=== PATIENT | female | born 1980 | race Caucasian/White ===

== ENCOUNTER 2017-03-29 06:56 | Day surgery (SDC) | payer MEDICAID ==
[~2017-03-29 06:56] MED LIST: Lactated Ringers 1,000 ML IV SCH; Lidocaine 1%/Sod Bicarbonate in NS 8.4% 1 ML Syringe IV PRN; Sodium Chloride 0.9% 10 ML Syringe FLUSH PRN
--- NOTE | 2017-03-29 07:21 | PCM.PREANE ---
Preanesthetic Assessment - Procedure Proposed Procedure: Removal of hardware of left clavical - Anesthesia/Transfusion/Family Hx Anesthesia History: Prior Anesthesia Without Reaction Other Type of Anesthesia Reaction Comment: No complications from prior anesthesia Family History of Anesthesia Reaction: No Transfusion History: No Prior Transfusion(s) Intubation History: Unknown - Review of Systems General: No Symptoms Pulmonary: No Symptoms Cardiovascular: No Symptoms Gastrointestinal: No Symptoms Neurological: No Symptoms, Other (migraines ) Other: Reports: None - Physical Assessment NPO Status Date: 03/29/17 NPO Status Time: 22:45 Pulse: 66 O2 Sat by Pulse Oximetry: 98 Respiratory Rate: 16 Blood Pressure: 93/66 Temperature: 36.8 C Height: 1.73 m Weight: 69.4 kg ASA Class: 2 Mental Status: Alert & Oriented x3 Airway Class: Mallampati = 1 Dentition: Reports: Normal Dentition Thyro-Mental Finger Breadths: 3 Mouth Opening Finger Breadths: 5 ROM/Head Extension: Full Lungs: Clear to Auscultation, Normal Respiratory Effort Cardiovascular: Regular Rate, Regular Rhythm - Allergies Allergies/Adverse Reactions: Allergies Allergy/AdvReac Type Severity Reaction Status Date / Time Latex, Natural Rubber Allergy Intermediate Swelling Verified 10/11/14 01:28 acetaminophen [From Vicodin] Allergy Mild Itching Verified 10/11/14 01:28 hydrocodone bitartrate Allergy Mild Itching Verified 10/11/14 01:28 [From Vicodin] venom-honey bee Allergy Anaphylactic Verified 10/11/14 01:28 [bee venom (honey bee)] Shock - Blood Blood Available: No - Acknowledgements Anesthesia Type Planned: General Anesthesia Pt an Appropriate Candidate for the Planned Anesthesia: Yes Alternatives and Risks of Anesthesia Discussed w Pt/Guardian: Yes Pt/Guardian Understands and Agrees with Anesthesia Plan: Yes PreAnesthesia Questionnaire - Past Health History Medical/Surgical History: Denies Medical/Surgical History HEENT History: Reports: None Cardiovascular History: Reports: None Respiratory History: Reports: None Gastrointestinal History: Reports: None, GERD Genitourinary History: Reports: None SUPERVISOR SHOW OPERATIONS History: Reports: Other (See Below) (pelvic pain) Musculoskeletal History: Reports: None Neurological History: Reports: None - SUBSTANCE USE Smoking Status *Q: Former Smoker Tobacco Use Within Last Twelve Months: Cigarettes Second Hand Smoke Exposure: Yes Days Per Week of Alcohol Use: 0 Number of Drinks Per Day: 0 Total Drinks Per Week: 0 Recreational Drug Use History: No Recreational Drug Type: Reports: Cocaine (history), Marijuana/Hashish (13yrs ago ) - HOME MEDS Home Medications: Home Meds SUMAtriptan Succinate [Imitrex] 100 mg PO DAILY PRN 10/11/14 [History] - CURRENT (IN HOUSE) MEDS Current Meds: Current Medications Lactated Ringer's (Ringers, Lactated) 1,000 mls @ 125 mls/hr IV ASDIRECTED LOUIS Lidocaine/Sodium Bicarbonate (Buffered Lidocaine 1% In Ns 8.4%) 0.25 ml IV ONETIME PRN PRN Reason: Prior to IV Start Sodium Chloride (Saline Flush) 10 ml FLUSH ASDIRECTED PRN PRN Reason: Keep Vein Open
[2017-03-29] MEDS ORDERED: Bupivacaine 0.5% 30 ML SDV ONE (07:24)
[2017-03-29] MEDS ORDERED: Iodine/Sodium Iodide 2% Tincture 30 ML Bottle ONE (07:24)
[2017-03-29] MEDS ORDERED: diphenhydrAMINE 50 MG/ML SDV IVPUSH PRN (07:33)
[2017-03-29] MEDS ORDERED: HYDROmorphone 0.5 MG/0.5 ML Syringe IVPUSH PRN (07:33)
[2017-03-29] MEDS ORDERED: Ondansetron 4 MG/2 ML SDV IVPUSH PRN ×2 (07:33→07:39)
[2017-03-29] MEDS ORDERED: Meperidine PF 50 MG/ML Syringe IVPUSH PRN (07:33)
[2017-03-29] MEDS ORDERED: fentaNYL 100 MCG/2 ML SDV IVPUSH PRN (07:33)
[2017-03-29] MEDS ORDERED: Acetaminophen/oxyCODONE 325-5 MG Tab PO PRN (07:39)
[2017-03-29] MEDS ORDERED: Ketorolac 30 MG/ML SDV IVPUSH PRN (07:39)
[2017-03-29] MEDS ORDERED: Propofol 200 MG/20 ML SDV ONE (07:51)
[2017-03-29] MEDS ORDERED: Midazolam 1 MG/ML 2 ML SDV ONE (07:52)
[2017-03-29] MEDS ORDERED: Lidocaine 1% 4 ML ONE (07:56)
[2017-03-29] MEDS ORDERED: Ondansetron 4 MG/2 ML SDV ONE (08:30)
[2017-03-29] MEDS ORDERED: Dexamethasone 4 MG/ML 5 ML MDV ONE (08:30)
[2017-03-29] MEDS ORDERED: ceFAZolin 1 GM Vial ONE (08:39)
[2017-03-29] MEDS ORDERED: HYDROmorphone 1 MG/ML Syringe ONE (08:51)
--- NOTE | 2017-03-29 09:31 | PCM.POSTAN ---
POST ANESTHESIA ASSESSMENT - MENTAL STATUS Mental Status: Other (Drowsy ) - VITAL SIGNS Pulse Rate: 80 SaO2: 98 Resp Rate: 17 Blood Pressure: 110/62 Temperature: 36.4 C - RESPIRATORY Respiratory Status: Respiratory Rate WNL, Airway Patent, O2 Saturation Stable - CARDIOVASCULAR CV Status: Pulse Rate WNL, Blood Pressure Stable - GASTROINTESTINAL GI Status: No Symptoms - PAIN Pain Score: 0 - POST OP HYDRATION Hydration Status: Adequate & Stable
[2017-03-29] MEDS ORDERED: Morphine 15 MG Tab.ER PO ONE (10:15)
[2017-03-29 12:14] VITALS: BP 116/67
--- NOTE | 2017-03-29 12:52 | PCM48HPAN ---
Post Anesthesia Note - EVALUATION WITHIN 48HRS OF ANESTHETIC Vital Signs in Normal Range: Yes Patient Participated in Evaluation: Yes Respiratory Function Stable: Yes Airway Patent: Yes Cardiovascular Function Stable: Yes Hydration Status Stable: Yes Pain Control Satisfactory: Yes Nausea and Vomiting Control Satisfactory: Yes Mental Status Recovered: Yes
--- NOTE | 2017-03-29 13:36 | OR ---
DATE OF OPERATION: 03/29/2017 SURGEON: Hubert Mariscal MD PREOPERATIVE DIAGNOSIS: Status post fracture of left clavicle with plate and screw fixation. POSTOPERATIVE DIAGNOSIS: Status post fracture of left clavicle with plate and screw fixation. OPERATION PERFORMED: Removal of a plate and screw fixation of left clavicle hardware. ANESTHESIA: General. DESCRIPTION OF PROCEDURE: The patient was taken to the operative room in a supine position and was placed under general anesthesia. After adequate anesthesia, the patient was placed in a beach chair type position. The operation proceeded with prepping and draping of the left shoulder by standard technique. After prepping and draping, the area of surgery was identified. The plate was easily palpated. The skin incision was placed over the plate area and the patient was warned that we would have to make a new incision due to the significant drift of the old incision for surgery to the point where it was not feasible to use. Also, she was warned that this may create some numbness on the anterior portion of her chest. She understood that too prior to surgery. After the incision was made penetrating through the skin and subcutaneous tissues, these were dissected off the plate by sharp dissection. The plate was identified. The operation then proceeded with removal of 5 standard cortical screws and 1 locking screw. Once these screws were removed, the plate was then removed in a retrograde fashion. The screw hole areas had developed an over ridge of bony formation. This was trimmed smooth with a rongeur creating a nice flat smooth surface on the bone. Thorough irrigation was used through the procedure. The operation proceeded with closure of the deep tissues with 3-0 Vicryl, subcutaneous tissues with 3-0 Vicryl, and then the skin was closed with a running 3-0 Prolene. The standard Steri-Strips were applied across the wound. The patient tolerated the whole procedure well. She left the operating room in stable condition to her room for recovery. ESTIMATED BLOOD LOSS: MMODAL /[id number]
[2017-03-29] MEDS ORDERED: Lactated Ringers 1,000 ML ONE (13:47)
== END 2017-03-29 11:15 | disposition home or self-care (01) ==
LOC: JD.SDS 06:56
PROVIDERS: ATTEND Specialist
DX: T84.84XA Pain due to internal orthopedic prosthetic devices, implants and grafts, initial encounter (principal); K21.9 Gastro-esophageal reflux disease without esophagitis; G43.109 Migraine with aura, not intractable, without status migrainosus; F31.9 Bipolar disorder, unspecified; F60.9 Personality disorder, unspecified; F14.21 Cocaine dependence, in remission; F12.21 Cannabis dependence, in remission; Z87.891 Personal history of nicotine dependence; Z87.442 Personal history of urinary calculi; Z88.5 Allergy status to narcotic agent; Z88.8 Allergy status to other drugs, medicaments and biological substances; Z91.030 Bee allergy status; Z91.040 Latex allergy status; Z79.899 Other long term (current) drug therapy; Z98.890 Other specified postprocedural states; Z90.49 Acquired absence of other specified parts of digestive tract
CPT/HCPCS: 20680; 81025; A9270; J0690; J1100; J1170; J2250; J2405; J3010; J7120; 00450; J2704

== ENCOUNTER 2020-06-23 07:01 | Day surgery (SDC) | payer BC, MEDICAID ==
[~2020-06-23 07:01] MED LIST changes: +Lidocaine 1%/Sod Bicarbonate in NS 8.4% 1 ML Syringe IDERM PRN; -Lidocaine 1%/Sod Bicarbonate in NS 8.4% 1 ML Syringe IV PRN
--- NOTE | 2020-06-23 07:22 | PCM.PREANE ---
Preanesthetic Assessment - Procedure Proposed Procedure: Right CTR with Left CT steroid injection - Anesthesia/Transfusion/Family Hx Anesthesia History: Prior Anesthesia Without Reaction Other Type of Anesthesia Reaction Comment: No complications from prior anesthesia Family History of Anesthesia Reaction: No Transfusion History: No Prior Transfusion(s) Intubation History: Unknown - Review of Systems General: No Symptoms Pulmonary: No Symptoms (History of smokin/4ppd times 17 years History of cocaine and marijuana use in the past. ETOH: occasionally) Cardiovascular: No Symptoms (Elevated cholesterol) Gastrointestinal: No Symptoms (Lower back pain 06/23, GERD ) Neurological: No Symptoms (06/17/09 bilateral knee pain, motion sickness), Headache (Migraines), Tingling (fingers bilateral hands and toes on the left foot) Other: Reports: Depression, Anxiety (History of Bipolar disorder, Drug dependence, personality disorder) - Physical Assessment NPO Status Date: 06/22/20 NPO Status Time: 23:30 Vital Signs: HR: 85 Resp: 16 B/P: 104/68 Temp: 97.5 Sat: 97% Height: 1.73 m Weight: 78 kg ASA Class: 2 Mental Status: Alert & Oriented x3 Airway Class: Mallampati = 2 Dentition: Reports: Normal Dentition, Caries Thyro-Mental Finger Breadths: 3 Mouth Opening Finger Breadths: 3 ROM/Head Extension: Full Lungs: Clear to Auscultation, Normal Respiratory Effort Cardiovascular: Regular Rate, Regular Rhythm, No Murmurs - Lab Values: Laboratory Last Values MRSA (PCR) Negative 06/11/20 14:10 All labs reviewed and noted and within acceptable ranges to proceed with s cheduled procedure. - Allergies Allergies/Adverse Reactions: Allergies Allergy/AdvReac Type Severity Reaction Status Date / Time Latex, Natural Rubber Allergy Intermediate Swelling Verified 06/22/20 13:06 hydrocodone bitartrate Allergy Mild Itching Verified 06/22/20 13:06 [From Vicodin] venom-honey bee Allergy Anaphylactic Verified 06/22/20 13:06 [bee venom (honey bee)] Shock - Anesthesia Plan Pre-Op Medication Ordered: None - Acknowledgements Anesthesia Type Planned: MAC Pt an Appropriate Candidate for the Planned Anesthesia: Yes Alternatives and Risks of Anesthesia Discussed w Pt/Guardian: Yes Pt/Guardian Understands and Agrees with Anesthesia Plan: Yes PreAnesthesia Questionnaire - Past Health History Medical/Surgical History: Denies Medical/Surgical History HEENT History: Reports: Impaired Vision, Other (See Below) Other HEENT History: wears glasses Cardiovascular History: Reports: High Cholesterol Respiratory History: Reports: None Gastrointestinal History: Reports: GERD Genitourinary History: Reports: Other (See Below) Other Genitourinary History: nephrolithiasis, pylenonephritis 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: Reports: Other (See Below) Other OB/BYN History: pelvic pain Musculoskeletal History: Reports: Back Pain, Chronic, Other (See Below) Other Musculoskeletal History: rib pain, bilateral carpal tunnel syndrome Neurological History: Reports: Migraines Psychiatric History: Reports: Addiction, Bipolar, Other (See Below) Other Psychiatric History: personality disorder Endocrine/Metabolic History: Reports: None Hematologic History: Reports: None Immunologic History: Reports: None Oncologic (Cancer) History: Reports: None Dermatologic History: Reports: None - Infectious Disease History Infectious Disease History: Reports: None - Past Surgical History Head Surgeries/Procedures: Reports: None Cardiovascular Surgical History: Reports: None Respiratory Surgical History: Reports: None GI Surgical History: Reports: Appendectomy, Cholecystectomy, EGD Female Surgical History: Reports: LEEP, Lithotripsy/ESWL, Other (See Below) Other Female Surgeries/Procedures: lysis of pelvic adhesions Endocrine Surgical History: Reports: None Neurological Surgical History: Reports: None Musculoskeletal Surgical History: Reports: Other (See Below) Other Musculoskeletal Surgeries/Procedures:: right knee arthroscopy, left clavicle ORIF with later hardware removal Oncologic Surgical History: Reports: None Dermatological Surgical History: Reports: None - SUBSTANCE USE Tobacco Use Status *Q: Current Every Day Tobacco User Recreational Drug Use History: Yes Recreational Drug Last Use: 2007 - HOME MEDS Home Medications: Home Meds SUMAtriptan succinate [Imitrex] 100 mg PO DAILY PRN 10/11/14 [History] Ibuprofen [Motrin] 800 mg PO Q6HR PRN 03/29/17 [History] Cyclobenzaprine [Flexeril] 10 mg PO TID PRN 06/22/20 [History] Prazosin [Minpress] 1 mg PO BEDTIME 06/22/20 [History] hydrOXYzine pamoate [Vistaril] 25 mg PO QID PRN 06/22/20 [History] traMADol [Ultram] 50 - 100 mg PO Q6H PRN #10 tab 06/23/20 [Rx] - CURRENT (IN HOUSE) MEDS Current Meds: Current Medications Lactated Ringer's (Ringers, Lactated) 1,000 mls @ 125 mls/hr IV ASDIRECTED [place] Stop: 06/23/20 23:00 Lidocaine/Sodium Bicarbonate (Lidocaine 1%/Sod Bicarbonate In Ns 8.4% 1 Ml Syringe) 0.25 ml IDERM ONETIME PRN PRN Reason: Prior to IV Start Stop: 06/23/20 18:00 Sodium Chloride (Sodium Chloride 0.9% 10 Ml Syringe) 10 ml FLUSH ASDIRECTED PRN PRN Reason: Keep Vein Open Stop: 06/23/20 18:00
[2020-06-23] MEDS ORDERED: Ondansetron 4 MG/2 ML SDV ONE (07:45)
[2020-06-23] MEDS ORDERED: Ketorolac 30 MG/ML SDV ONE (07:45)
[2020-06-23] MEDS ORDERED: Propofol 200 MG/20 ML SDV ONE (07:45)
[2020-06-23] MEDS ORDERED: Lidocaine 1% 4 ML ONE (07:45)
[2020-06-23] MEDS ORDERED: fentaNYL 100 MCG/2 ML SDV ONE (07:45)
[2020-06-23] MEDS ORDERED: Midazolam 1 MG/ML 2 ML SDV ONE (07:45)
[2020-06-23] MEDS: Triamcinolone Acetonide 40 MG/ML 1 ML SDV ONE ×2 (07:49→08:47)
[2020-06-23] MEDS: Lidocaine 1% 30 ML SDV ONE ×2 (07:49→08:43)
[2020-06-23] MEDS: Bupivacaine 0.25% 10 ML SDV ONE ×2 (07:49→08:43)
[2020-06-23] MEDS ORDERED: Ondansetron 4 MG/2 ML SDV IVPUSH PRN (08:31)
[2020-06-23] MEDS ORDERED: ePHEDrine 50 MG/ML SDV IVPUSH PRN (08:31)
[2020-06-23] MEDS ORDERED: Midazolam 1 MG/ML 2 ML SDV IVPUSH PRN (08:31)
[2020-06-23] MEDS ORDERED: diphenhydrAMINE 50 MG/ML SDV IVPUSH PRN (08:31)
[2020-06-23] MEDS ORDERED: fentaNYL 100 MCG/2 ML SDV IVPUSH PRN (08:31)
[2020-06-23] MEDS ORDERED: HYDROmorphone 0.5 MG/0.5 ML Syringe IVPUSH PRN (08:31)
--- NOTE | 2020-06-23 09:09 | PCM48HPAN ---
Post Anesthesia Note - EVALUATION WITHIN 48HRS OF ANESTHETIC Vital Signs in Normal Range: Yes Patient Participated in Evaluation: Yes Respiratory Function Stable: Yes Airway Patent: Yes Cardiovascular Function Stable: Yes Hydration Status Stable: Yes Pain Control Satisfactory: Yes Nausea and Vomiting Control Satisfactory: Yes Mental Status Recovered: Yes Vital Signs: Last Vital Signs Temp 36.8 C 06/23/20 08:57 Pulse 68 06/23/20 08:57 Resp 12 06/23/20 08:57 BP 100/67 06/23/20 08:57 Pulse Ox 93 L 06/23/20 08:57
[2020-06-23 09:56] VITALS: BP 97/72; PULSE 55
--- NOTE | 2020-06-23 16:48 | PCM.OPNOTE ---
- General Post-Op/Procedure Note Date of Surgery/Procedure: 06/23/20 Operative Procedure(s): right carpal tunnel release with left carpal tunnel injection Pre Op Diagnosis: bilateral median nerve compression neuropathy Post-Op Diagnosis: Same Anesthesia Technique: Local, MAC Primary Surgeon: Varinder Serna Anesthesia Provider: Riri Montenegro Teacher Physically Impaired: Yoana Ledbetter EBL in mLs: 5 Complications: None Condition: Good Free Text/Narrative:: Intake & Output 06/23/20 06/23/20 06/23/20 06:59 14:59 22:59 Intake Total 500 Balance 500
--- NOTE | 2020-06-23 17:18 | OR ---
DATE OF OPERATION: 06/23/2020 SURGEON: Varinder Serna MD OPERATION PERFORMED: Right carpal tunnel release with left carpal tunnel injection. PREOPERATIVE DIAGNOSIS: Bilateral median nerve compression neuropathy. POSTOPERATIVE DIAGNOSIS: Bilateral median nerve compression neuropathy. ANESTHESIA: Local MAC. ANESTHESIA PROVIDER: Riri Montenegro CRNA SPECIAL EDUCATION SCIENCE TEACHER: Yoana Ledbetter PA-C ESTIMATED BLOOD LOSS: Less than 5 mL. COMPLICATIONS: None. CONDITION: Stable. DESCRIPTION OF PROCEDURE: The patient was identified in the preop holding area. Proper site was marked and identified by the surgeon. The patient was taken back to the operating theater where after adequate anesthesia, the patient's right upper extremity was sterilely prepped and draped in the usual sterile fashion. OR time-out was performed. The patient did not receive antibiotics and it is not indicated for soft tissue hand procedure. At this time, the right upper extremity was exsanguinated and an Esmarch was used as a tourniquet on the forearm. At this time, using 1% lidocaine without epinephrine and 0.25% Marcaine without epinephrine, the palmar cutaneous branch of the median nerve was anesthetized and then the incisional site was anesthetized using Tabares cardinal line and ulnar border of the fourth digit as reference. Once this had set up, an incision was made. Blunt dissection was taken down to the palmar cutaneous fascia. Palmar cutaneous fascia was incised with a [place] blade. At this time, the transverse carpal ligament was identified. A small rent was made in the transverse carpal ligament with a [place] blade under direct visualization. Resection of the transverse carpal ligament was done distally using tenotomy scissors making sure to stop short of the palmar arch. At this time, attention was turned proximally after it was found to be adequately released. Using the tenotomy scissors keeping the tips ulnar to protect the palmar cutaneous branch of the median nerve, the superficial forearm fascia as well as the transverse carpal ligament were resected proximally. It was found to be adequate release both proximally and distally. At this time, adequate saline was irrigated through the wound. 4-0 nylon sutures were used closure of the skin. The patient was placed in a sterile soft dressing and sent to PACU in stable condition. After this was completed, under sterile technique, 1 mL of 40 mg Kenalog and 2 mL of 0.25% Marcaine were injected to the left carpal tunnel. The patient tolerated all procedures well. MMODAL /[id number]
== END 2020-06-23 09:50 | disposition home or self-care (01) ==
LOC: JD.SDS 07:01
PROVIDERS: ATTEND Orthopaedic Surgery
DX: G56.03 Carpal tunnel syndrome, bilateral upper limbs (principal); E78.00 Pure hypercholesterolemia, unspecified; G43.109 Migraine with aura, not intractable, without status migrainosus; K21.9 Gastro-esophageal reflux disease without esophagitis; F17.210 Nicotine dependence, cigarettes, uncomplicated; Z88.6 Allergy status to analgesic agent; Z91.030 Bee allergy status; Z91.040 Latex allergy status; Z87.442 Personal history of urinary calculi; Z79.899 Other long term (current) drug therapy; Z98.890 Other specified postprocedural states
CPT/HCPCS: 20526; 64721; 81025; 87641; J1885; J2250; J2405; J2704; J3010; J3301; J3490; J7120; 01810

== ENCOUNTER 2020-12-18 08:02 | Emergency (ER) | payer BC, MEDICAID ==
[2020-12-18 08:10] VITALS: BP 132/88; PULSE 79
--- NOTE | 2020-12-18 08:18 | EDM.PDOC ---
ED HPI GENERAL MEDICAL PROBLEM - General Chief Complaint: ENT Problem Stated Complaint: DENTAL COMPLAINT Time Seen by Provider: 12/18/20 08:11 Source of Information: Reports: Patient History Limitations: Reports: No Limitations - History of Present Illness INITIAL COMMENTS - FREE TEXT/NARRATIVE: 40-year-old female presents to the ED with chief complaint of dental pain involving right lower molar tooth. She did see dentist on , December 16 and was placed on Pen-Vee K 4 times daily and advised take Tylenol and Motrin for pain. However pain is getting worse and Tylenol Motrin or doing nothing for the pain. She is having a difficult time keeping down the antibiotics due to nausea. Did not sleep at all last night. Constant throbbing pain felt primarily along her right mandible but not into her right ear. Onset: Gradual Onset Date: 12/14/20 Duration: Day(s):, Getting Worse Location: Reports: Face (Dental pain right lower molar.) Quality: Reports: Ache, Throbbing, Other (Constant throbbing pain with occasional pulsating pain) Severity: Moderate Improves with: Reports: None (8 out of 10) Worsens with: Reports: Eating Context: Reports: Other (Badly decayed tooth.). Denies: Activity, Exercise, Lifting, Sick Contact, Trauma Associated Symptoms: Reports: No Other Symptoms, Loss of Appetite (Not sleeping), Malaise, Nausea/Vomiting. 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: Acetaminophen, NSAIDS Right Oral/Mouth Pain Score (Numeric/FACES): 8 - Related Data Allergies Allergy/AdvReac Type Severity Reaction Status Date / Time Latex, Natural Rubber Allergy Intermediate Swelling Verified 12/18/20 08:10 hydrocodone bitartrate Allergy Mild Itching Verified 12/18/20 08:10 [From Vicodin] venom-honey bee Allergy Anaphylactic Verified 12/18/20 08:10 [bee venom (honey bee)] Shock Home Meds: Home Meds SUMAtriptan succinate [Imitrex] 100 mg PO DAILY PRN 10/11/14 [History] Ibuprofen [Motrin] 800 mg PO Q6HR PRN 03/29/17 [History] Amoxicillin/Clavulanate K [Augmentin 500-125 MG] 1 tab PO BID #10 tab 12/18/20 [Rx] Ondansetron [Zofran] 4 mg BUCCAL Q6H PRN #10 tab 12/18/20 [Rx] Penicillin V Potassium 500 mg PO QID 12/18/20 [History] oxyCODONE HCl/Acetaminophen [Percocet 5-325 mg Tablet] 1 - 2 each PO Q4H PRN #20 tablet 12/18/20 [Rx] Past Medical History - Past Health History Medical/Surgical History: Denies Medical/Surgical History HEENT History: Reports: Impaired Vision, Other (See Below) Other HEENT History: wears glasses Cardiovascular History: Reports: High Cholesterol Respiratory History: Reports: None Gastrointestinal History: Reports: GERD Genitourinary History: Reports: Other (See Below) Other Genitourinary History: nephrolithiasis, pylenonephritis 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: 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: Other (See Below) Other 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: pelvic pain Musculoskeletal History: Reports: Back Pain, Chronic, Other (See Below) Other Musculoskeletal History: rib pain, bilateral carpal tunnel syndrome Neurological History: Reports: Migraines Psychiatric History: Reports: Addiction, Bipolar, Other (See Below) Other Psychiatric History: personality disorder Endocrine/Metabolic History: Reports: None Hematologic History: Reports: None Immunologic History: Reports: None Oncologic (Cancer) History: Reports: None Dermatologic History: Reports: None - Infectious Disease History Infectious Disease History: Reports: None - Past Surgical History Head Surgeries/Procedures: Reports: None Cardiovascular Surgical History: Reports: None Respiratory Surgical History: Reports: None GI Surgical History: Reports: Appendectomy, Cholecystectomy, EGD Female Surgical History: Reports: LEEP, Lithotripsy/ESWL, Other (See Below) Other Female Surgeries/Procedures: lysis of pelvic adhesions Endocrine Surgical History: Reports: None Neurological Surgical History: Reports: None Musculoskeletal Surgical History: Reports: Other (See Below) Other Musculoskeletal Surgeries/Procedures:: right knee arthroscopy, left clavicle ORIF with later hardware removal Oncologic Surgical History: Reports: None Dermatological Surgical History: Reports: None Social & Family History - Caffeine Use Caffeine Use: Reports: Coffee, Energy Drinks, Soda, Tea - Living Situation & Occupation Living situation: Reports: Single Occupation: Employed ED ROS ENT - Review of Systems Review Of Systems: See Below Constitutional: Reports: Malaise, Fatigue, Decreased Appetite (From not sleeping). Denies: Fever, Chills HEENT: Reports: Dental Pain (Right lower molar tooth) Respiratory: Reports: No Symptoms Cardiovascular: Reports: No Symptoms Endocrine: Reports: No Symptoms GI/Abdominal: Reports: Nausea : Reports: No Symptoms Musculoskeletal: Reports: No Symptoms Skin: Reports: No Symptoms Neurological: Reports: No Symptoms Psychiatric: Reports: No Symptoms ED EXAM, ENT - Physical Exam Exam: See Below Exam Limited By: No Limitations General Appearance: Alert, WD/WN, Mild Distress, Other (Temperature is 36.2 degrees. Heart rate was 79 and sinus respiratory is 18 with O2 sats 100% room air BP 132/88.) Eye Exam: Bilateral Eye: Normal Inspection Ears: Normal TMs Mouth/Throat: Dental Pain (Dental pain is coming from the right lower second molar tooth which is badly decayed with approximately 40% of the tooth missing. The dentin is exposed. There was no abscess in the gingiva to drain. Mild surrounding gingival erythema.) Head: Atraumatic, Normocephalic Neck: Normal Inspection, Supple, Non-Tender, Full Range of Motion. No: Lymphadenopathy (L), Lymphadenopathy (R) Course - Vital Signs Last Recorded V/S: Last Vital Signs Temp 36.2 C 12/18/20 08:09 Pulse 79 12/18/20 08:09 Resp 18 12/18/20 08:09 BP 132/88 12/18/20 08:09 Pulse Ox 100 12/18/20 08:09 - Radiology Interpretation Free Text/Narrative:: 40-year-old female presents to the ED complaining of severe dental pain coming from the right lower second molar tooth which is badly decayed on examination. She did see the dentist on and was placed on Pen-Vee K 4 times daily which she is finding it difficult to take due to nausea. She is using Tylenol and Motrin for pain relief without any real relief of the pain. She was up all night due to pain. Exam reveals a very badly decayed right lower second molar tooth with approximately 40% of the tooth missing. There is no gingival abscess to drain. I will change her antibiotic to Augmentin 500/125 mg tablet twice daily and discontinue the Pen-Vee K. Zofran 4 mg sublingual every 4 to 6 hours as needed for nausea relief 10 tablets provided. Percocet tabs 5/325 mg strength 1 tablet with Motrin 600 mg every 6 hours as needed for pain relief. She is to follow-up with a dentist on Sunday next week as planned to have the tooth extracted. Departure - Departure Time of Disposition: 08:14 Disposition: Home, Self-Care 01 Condition: Fair Clinical Impression: Dental caries extending into dentin - Discharge Information *PRESCRIPTION DRUG MONITORING PROGRAM REVIEWED*: Not Applicable *COPY OF PRESCRIPTION DRUG MONITORING REPORT IN PATIENT RODGER: Not Applicable Prescriptions: Amoxicillin/Clavulanate K [Augmentin 500-125 MG] 1 tab PO BID #10 tab oxyCODONE HCl/Acetaminophen [Percocet 5-325 mg Tablet] 1 - 2 each PO Q4H PRN #20 tablet PRN Reason: pain relief. Ondansetron [Zofran] 4 mg BUCCAL Q6H PRN #10 tab PRN Reason: nausea or vomiting Referrals: Kerrie Marcum MD [Primary Care Provider] - Forms: ED Department Discharge, ED Return to Work/School Form Additional Instructions: Evaluation in the emergency room today in regards to dental pain secondary to dental caries involving the right lower second molar tooth. Tooth is scheduled to be extracted on December 21. Suggest pain control with Percocet tabs usually 1 tablet with Motrin 600 mg every 6 hours to relieve pain and inflammation. Change antibiotic to Augmentin 1 tablet twice daily and discontinue the Pen-Vee K which is 4 times daily. May use Zofran 4 mg under the tongue every 4-6 hours necessary for nausea or vomiting relief. Try and take a little bit of food or milk or milk shake etc. before taking pain medication as it can cause nausea and empty stomach. Follow-up with dentist next week as planned. Sepsis Event Note (ED) - Focused Exam Vital Signs: Vital Signs Temp Pulse Resp BP Pulse Ox 12/18/20 08:09 36.2 C 79 18 132/88 100
== END 2020-12-18 08:34 | disposition home or self-care (01) ==
LOC: JD.ED 08:02
DX: K02.9 Dental caries, unspecified (principal); G43.909 Migraine, unspecified, not intractable, without status migrainosus; Z91.040 Latex allergy status; Z88.5 Allergy status to narcotic agent; Z91.030 Bee allergy status; Z79.899 Other long term (current) drug therapy
CPT/HCPCS: 99282; 99283

== ENCOUNTER 2021-05-16 08:15 | Observation (INO) | payer BC, MEDICAID ==
[~2021-05-16 08:15] MED LIST changes: +Lidocaine 1% 2 ML ONE; +Midazolam 1 MG/ML 2 ML SDV ONE; +Propofol 200 MG/20 ML SDV ONE; +Rocuronium 50 MG/5 ML Vial ONE; -Sodium Chloride 0.9% 10 ML Syringe FLUSH PRN; +Sodium Chloride 0.9% 10 ML Syringe FLUSH SCH; +Succinylcholine/Sod PF 100 MG/5 ML SYRINGE IV ONE; +fentaNYL 100 MCG/2 ML SDV ONE
[2021-05-16] MEDS ORDERED: Bupivacaine 0.5% 30 ML SDV ONE ×2 (08:16→09:21)
[2021-05-16] MEDS ORDERED: Clindamycin Phosphate in D5W 900 MG in Premix Bag 1 BAG IV ONE ×2 (09:30)
[2021-05-16] MEDS ORDERED: Rocuronium 50 MG/5 ML Vial ONE ×2 (09:53→12:30)
[2021-05-16] MEDS ORDERED: fentaNYL 100 MCG/2 ML SDV ONE (10:53)
[2021-05-16] MEDS ORDERED: Esmolol 100 MG/10 ML SDV ONE (12:13)
[2021-05-16] MEDS ORDERED: Ondansetron 4 MG/2 ML SDV ONE (12:37)
[2021-05-16] MEDS ORDERED: Dexamethasone 4 MG/ML 5 ML MDV ONE (12:37)
[2021-05-16] MEDS ORDERED: Sugammadex Sodium 200 MG/2 ML VIAL ONE (12:41)
[2021-05-16] MEDS ORDERED: Ondansetron 4 MG/2 ML SDV IVPUSH PRN (13:12)
[2021-05-16] MEDS ORDERED: HYDROmorphone 0.5 MG/0.5 ML Syringe IVPUSH PRN (13:12)
[2021-05-16] MEDS ORDERED: Polyethylene Glycol 3350 Powder 17 GM Packet PO PRN (13:14)
[2021-05-16] MEDS ORDERED: Promethazine 25 MG/ML SDV IM PRN (13:14)
[2021-05-16] MEDS: fentaNYL 100 MCG/2 ML SDV IVPUSH PRN ×2 (13:21→13:56)
[2021-05-16] MEDS ORDERED: diphenhydrAMINE 25 MG Cap PO PRN (13:23)
[2021-05-16] MEDS ORDERED: Ondansetron 4 MG/2 ML SDV IVPUSH SCH (14:00)
[2021-05-16] MEDS: Acetaminophen 325 MG Tab PO SCH ×2 (14:33→19:31)
[2021-05-16] MEDS: oxyCODONE 5 MG Tab PO PRN ×2 (15:20→19:31)
[2021-05-16] MEDS: Lactated Ringers 1,000 ML IV SCH (15:25)
[2021-05-16] MEDS: HYDROmorphone 0.5 MG/0.5 ML Syringe IVPUSH PRN (17:05)
[2021-05-16] MEDS: Ondansetron 4 MG/2 ML SDV IVPUSH SCH (17:05)
[2021-05-17] MEDS: HYDROmorphone 0.5 MG/0.5 ML Syringe IVPUSH PRN ×2 (00:08→09:24)
[2021-05-17] MEDS: Ondansetron 4 MG/2 ML SDV IVPUSH SCH ×3 (00:09→12:11)
[2021-05-17] MEDS: Acetaminophen 325 MG Tab PO SCH ×3 (02:14→14:20)
[2021-05-17] MEDS: oxyCODONE 5 MG Tab PO PRN ×3 (03:43→12:10)
[2021-05-17] MEDS: Lactated Ringers 1,000 ML IV SCH (06:31)
[2021-05-17] MEDS ORDERED: Lactated Ringers 1,000 ML IV SCH (07:45)
[2021-05-17 11:56] VITALS: BP 113/73; PULSE 78
== END 2021-05-17 14:40 | disposition home or self-care (01) ==
LOC: JD.MS 08:15 → INTOOBSV 08:15
PROVIDERS: ADMIT Surgery; ATTEND Surgery
DX: K21.9 Gastro-esophageal reflux disease without esophagitis (principal); K44.9 Diaphragmatic hernia without obstruction or gangrene; D18.09 Hemangioma of other sites; K22.70 Barrett's esophagus without dysplasia; F17.210 Nicotine dependence, cigarettes, uncomplicated; E78.00 Pure hypercholesterolemia, unspecified; Z91.030 Bee allergy status; Z90.49 Acquired absence of other specified parts of digestive tract; Z98.890 Other specified postprocedural states; Z88.0 Allergy status to penicillin; Z88.5 Allergy status to narcotic agent; Z88.8 Allergy status to other drugs, medicaments and biological substances; Z91.040 Latex allergy status; Z91.048 Other nonmedicinal substance allergy status; Z79.899 Other long term (current) drug therapy
CPT/HCPCS: 38999; 43281; 81025; 94761; A9270; J0330; J1100; J1170; J2250; J2370; J2405; J2550; J2704; J3010; J3490; J7120; 00790; G0378